=== PATIENT | female | born 1975 | race African-American/Black ===

== ENCOUNTER 2016-08-10 20:37 | Emergency (ER) | payer MEDICAID ==
[~2016-08-10] VITALS: Ht 172.7 cm; Wt 133.8 kg
[~2016-08-10 20:37] MED LIST: HUMULOG; lantus; lisinopril; neurontin
[2016-08-10 21:00] VITALS: BP 159/96
[2016-08-10 21:42] LABS: Basophils # (auto) 0 uL; Basophils % (auto) 0.4 % (0.0-2.0); Eosinophils # (auto) 0.2 uL; Hemoglobin 12.3 g/dL (12.2-16.2); Lymphocytes # (auto) 2.6 uL; Lymphocytes % (auto) 27.1 % (10.0-50.0); Mean Corpuscular Hemoglobin 27.2 pg (28.0-32.0); Mean Corpuscular Hgb Conc. 33.3 g/dL (32.0-36.0); Mean Corpuscular Volume 81.6 fL (80.0-100.0); Mean Platelet Volume 8.9 fL (7.4-10.4); Monocytes # (auto) 0.5 uL; Monocytes % (auto) 4.7 % (0.0-12.0); Neutrophils # (auto) 6.4 uL; Neutrophils % (auto) 65.8 % (37.0-80.0); Platelet Count (auto) 330 10^3/uL (140-450); Red Cell Distribution Width 14.7 % (11.6-16.0); White Blood Cell 9.7 10^3/uL (4.4-10.8)
[2016-08-10 22:02] LABS: Albumin 3.3 g/dL (3.4-5.0); Anion Gap 7 (5-15); Aspartate Aminotransferase 12 U/L (15-37); BUN/Creatinine Ratio 10.8; Blood Urea Nitrogen 8 mg/dL (7-18); Calcium 8.4 mg/dL (8.5-10.1); Carbon Dioxide 27 mmol/L (21-32); Chloride 104 mmol/L (98-107); GFR African American 112 mL/min; GFR Non-African American 93 mL/min; Glucose 238 mg/dL (74-106); Potassium 3.7 mmol/L (3.5-5.1); Sodium 138 mmol/L (136-145)
[2016-08-10 22:06] LABS: Partial Thromboplastin Time 24.9 sec (22.64-33.71); Prothrombin Time 10.3 sec (9.37-12.3)
[2016-08-10 22:07] LABS: Alkaline Phosphatase 160 U/L (45-117); Bilirubin, Total 0.3 mg/dL (0.2-1.0); Total Protein 7.9 g/dL (6.4-8.2)
== END 2016-08-11 01:48 | disposition left against medical advice (07) ==
LOC: ER 20:55
DX: R07.9 Chest pain, unspecified (principal); R68.84 Jaw pain; Z53.21 Procedure and treatment not carried out due to patient leaving prior to being seen by health care provider
CPT/HCPCS: 36415; 80053; 81025; 84484; 85025; 85610; 85730; 93005

== ENCOUNTER 2017-05-14 02:53 | Emergency (ER) | payer MEDICAID ==
[~2017-05-14] VITALS: Ht 170.2 cm; Wt 141.5 kg
[2017-05-14 05:25] LABS: Basophils # (auto) 0 uL; Eosinophils # (auto) 0.1 uL; Mean Corpuscular Volume 79.6 fL (80.0-100.0); Monocytes # (auto) 0.4 uL; Red Cell Distribution Width 16.1 % (11.8-14.3)
[2017-05-14 05:27] LABS: Basophils % (auto) 0.7 % (0.0-2.0); Hematocrit 35.6 % (36.0-46.0); Hemoglobin 11.6 g/dL (12.2-16.2); Lymphocytes # (auto) 1.1 uL; Lymphocytes % (auto) 17.5 % (10.0-50.0); Mean Corpuscular Hemoglobin 25.9 pg (28.0-32.0); Mean Corpuscular Hgb Conc. 32.5 g/dL (32.0-36.0); Neutrophils # (auto) 4.6 uL; Neutrophils % (auto) 72.8 % (37.0-80.0); Nucleated Red Blood Cells % 0.2 %; Platelet Count (auto) 260 10^3/uL (140-450); Red Blood Cells 4.47 10^6/uL (4.0-5.20); White Blood Cell 6.3 10^3/uL (4.4-10.8)
[2017-05-14 05:28] LABS: Urine Bacteria FEW /hpf (None Seen); Urine Blood Negative /uL (Negative); Urine Specific Gravity 1.033 (1.001-1.035); Urine WBC <1 /hpf (0 - 5)
[2017-05-14 05:43] LABS: Albumin 2.7 g/dL (3.4-5.0); BUN/Creatinine Ratio 8.3; Bilirubin, Total 0.2 mg/dL (0.2-1.0); Calcium 8.1 mg/dL (8.5-10.1); Magnesium 1.8 mg/dL (1.6-2.6); Potassium 3.9 mmol/L (3.5-5.1); Total Protein 7.2 g/dL (6.4-8.2)
[2017-05-14] MEDS ORDERED: SODIUM CHLORIDE 0.9% 1,000 ML IV ONE (07:11)
[2017-05-14] MEDS ORDERED: METOCLOPRAMIDE HCL 5MG/ml INJ 2ml VIAL IV ONE (07:15)
[2017-05-14] MEDS ORDERED: KETOROLAC TROMETH 30 MG/ML 1ML VIAL IV ONE (07:15)
[2017-05-14] MEDS ORDERED: FUROSEMIDE 40 MG/4 ML VIAL IV ONE (07:15)
[2017-05-14 07:44] LABS: INR 0.95 (0.9-1.15); Partial Thromboplastin Time 27.3 sec (22.64-33.71); Prothrombin Time 10.4 sec (9.37-12.3)
[2017-05-14 12:56] VITALS: BP 127/83
== END 2017-05-14 13:11 | disposition home or self-care (01) ==
LOC: ER 02:53 → EDBD 02:53 → EDUNIT# 02:53 → ER 13:11
DX: R07.89 Other chest pain (principal); E11.65 Type 2 diabetes mellitus with hyperglycemia; E44.0 Moderate protein-calorie malnutrition; E66.01 Morbid (severe) obesity due to excess calories; J40 Bronchitis, not specified as acute or chronic; I10 Essential (primary) hypertension; F17.210 Nicotine dependence, cigarettes, uncomplicated; Z68.42 Body mass index [BMI] 45.0-49.9, adult; Z79.4 Long term (current) use of insulin; Z83.3 Family history of diabetes mellitus; Z82.49 Family history of ischemic heart disease and other diseases of the circulatory system
CPT/HCPCS: 36415; 71020; 80053; 81001; 81025; 82962; 83735; 83880; 84443; 84484; 85025; 85379; 85610; 85730; 87400; 93005; 96361; 96374; 96375; 99285; J1885; J1940; J2765; J7030

== ENCOUNTER 2021-04-17 21:25 | Emergency (ER) | payer MEDICAID ==
[~2021-04-17] VITALS: Ht 172.7 cm; Wt 113.4 kg
[~2021-04-17 21:25] MED LIST changes: +AMIT-256; +CEFT1INJ33 IJ; +CETI10TA93; +FAMO-12; +FLUC100T34 PO; -HUMULOG; +HYDR-4072 PO; +INSREGI SC; +LEVEMIR; +LISI40TA11; +VANC500I IV; -lantus; -lisinopril; -neurontin
[2021-04-17 21:48] VITALS: BP 164/98
== END 2021-04-17 22:15 | disposition short-term general hospital (02) ==
LOC: ER 21:25 → EDBD 21:25 → ER 22:15
DX: S06.899A Other specified intracranial injury with loss of consciousness of unspecified duration, initial encounter (principal); E11.9 Type 2 diabetes mellitus without complications; K21.9 Gastro-esophageal reflux disease without esophagitis; I10 Essential (primary) hypertension; F17.210 Nicotine dependence, cigarettes, uncomplicated; Z88.0 Allergy status to penicillin; Z88.5 Allergy status to narcotic agent; V43.52XA Car driver injured in collision with other type car in traffic accident, initial encounter; Y93.89 Activity, other specified; Y92.488 Other paved roadways as the place of occurrence of the external cause; Y99.8 Other external cause status

== ENCOUNTER 2021-10-14 05:34 | Inpatient (IN) | payer MEDICAID ==
[~2021-10-14] VITALS: Ht 170.2 cm; Wt 143.0 kg
[2021-10-14 07:09] LABS: Basophils # (auto) 0.1 10 ^3/uL (0-0.2); Basophils % (auto) 1.1 % (0.0-2.0); Eosinophils # (auto) 0.3 10 ^3/uL (0-0.8); Hematocrit 26.9 % (36.0-46.0); Lymphocytes # (auto) 1.8 10 ^3/uL (0.4-5.4); Lymphocytes % (auto) 22.4 % (10.0-50.0); Mean Corpuscular Hemoglobin 27.3 pg (28.0-32.0); Mean Corpuscular Hgb Conc. 33.4 g/dL (32.0-36.0); Mean Corpuscular Volume 81.7 fL (80.0-100.0); Monocytes # (auto) 0.5 10 ^3/uL (0-1.3); Monocytes % (auto) 6.1 % (0.0-12.0); Neutrophils # (auto) 5.4 10 ^3/uL (1.6-8.6); Neutrophils % (auto) 66.4 % (37.0-80.0); Nucleated Red Blood Cells % 0.1 %; Red Blood Cells 3.29 10^6/uL (4.0-5.20); Red Cell Distribution Width 14.9 % (11.8-14.3); White Blood Cell 8.1 10^3/uL (4.4-10.8)
[2021-10-14 07:30] LABS: Albumin 1.5 g/dL (3.4-5.0); Calcium 8.2 mg/dL (8.5-10.1); Potassium 4.1 mmol/L (3.5-5.1)
[2021-10-14 07:33] LABS: BUN/Creatinine Ratio 18.5; Bilirubin, Total 0.2 mg/dL (0.2-1.0); Total Protein 6.4 g/dL (6.4-8.2)
[2021-10-14] MEDS ORDERED: SODIUM CHLORIDE 0.9% 1,000 ML IV ONE (08:45)
[2021-10-14] MEDS ORDERED: ASPirin 81 mg TAB ONE (11:44)
[2021-10-14] MEDS ORDERED: ASPirin 81 mg TAB PO ONE (12:00)
[2021-10-14] MEDS ORDERED: HYDROcodone-ACET 5/325MG TAB PO ONE (15:00)
[2021-10-14] MEDS ORDERED: ACETAMINOPHEN 325 MG TAB PO PRN (16:30)
[2021-10-14] MEDS ORDERED: ONDANSETRON HCL 4 MG/2 ML VIAL IV PRN (16:30)
[2021-10-14] MEDS ORDERED: MORPHINE SULFATE INJ 2 MG/ml SYRG IV PRN ×2 (16:30)
[2021-10-14] MEDS ORDERED: NITROGLYCERIN 0.4 MG SL TAB SL PRN (16:30)
[2021-10-14] MEDS: DOXYCYCLINE 100MG/250ML 250 ML IV SCH (18:43)
[2021-10-14] MEDS: HYDROcodone-ACET 5/325MG TAB PO PRN (19:28)
[2021-10-15] MEDS: HYDROcodone-ACET 5/325MG TAB PO PRN ×3 (01:38→15:12)
[2021-10-15] MEDS: DOXYCYCLINE 100MG/250ML 250 ML IV SCH ×2 (06:23→17:46)
[2021-10-15] MEDS: ENOXAPARIN SOD 40 MG/0.4 ML SYRINGE SC SCH (10:08)
[2021-10-15 13:00] LABS: Basophils # (auto) 0 10 ^3/uL (0-0.2); Basophils % (auto) 0.6 % (0.0-2.0); Eosinophils # (auto) 0.5 10 ^3/uL (0-0.8); Hemoglobin 9.4 g/dL (12.2-16.2); Mean Corpuscular Hemoglobin 26.8 pg (28.0-32.0); Monocytes # (auto) 0.4 10 ^3/uL (0-1.3); Neutrophils # (auto) 3.6 10 ^3/uL (1.6-8.6)
[2021-10-15 13:02] LABS: Hematocrit 28.6 % (36.0-46.0); Lymphocytes # (auto) 2.1 10 ^3/uL (0.4-5.4); Lymphocytes % (auto) 31.4 % (10.0-50.0); Mean Corpuscular Hgb Conc. 32.8 g/dL (32.0-36.0); Mean Corpuscular Volume 81.7 fL (80.0-100.0); Monocytes % (auto) 6.6 % (0.0-12.0); Neutrophils % (auto) 53.4 % (37.0-80.0); Nucleated Red Blood Cells % 0.2 %; White Blood Cell 6.7 10^3/uL (4.4-10.8)
[2021-10-15 13:20] LABS: Albumin 1.5 g/dL (3.4-5.0); Calcium 8.4 mg/dL (8.5-10.1); Potassium 4.4 mmol/L (3.5-5.1)
[2021-10-15 13:24] LABS: Bilirubin, Total 0.3 mg/dL (0.2-1.0); Total Protein 6.5 g/dL (6.4-8.2)
[2021-10-15 17:25] VITALS: BP 162/88
[2021-10-15] MEDS ORDERED: [UNRECOGNIZED DRUG - CODE] (18:54)
[2021-10-15] MEDS ORDERED: PAR20T GT (18:54)
[2021-10-15] MEDS ORDERED: SEVE800T8 PO (18:55)
[2021-10-15] MEDS ORDERED: ALLO100T PO (18:58)
[2021-10-15] MEDS ORDERED: GABA300C10 PO (19:00)
[2021-10-15] MEDS ORDERED: MONT10TA23 PO (19:01)
[2021-10-15] MEDS: HYDROmorphone HCL 2 MG/ML VL/or syr IV PRN (21:13)
[2021-10-15 22:16] VITALS: BP 150/91
[2021-10-16] VITALS (7 sets, daily range): BP systolic 150–167; BP diastolic 75–96
[2021-10-16] MEDS: HYDROcodone-ACET 5/325MG TAB PO PRN ×2 (00:16→20:50)
[2021-10-16] MEDS: HYDROmorphone HCL 2 MG/ML VL/or syr IV PRN ×3 (01:57→14:41)
[2021-10-16] MEDS: DOXYCYCLINE 100MG/250ML 250 ML IV SCH ×2 (05:00→17:06)
[2021-10-16 06:46] LABS: Basophils # (auto) 0 10 ^3/uL (0-0.2); Basophils % (auto) 0.5 % (0.0-2.0); Eosinophils # (auto) 0.5 10 ^3/uL (0-0.8); Eosinophils % (auto) 7.6 % (0.0-7.0); Hemoglobin 9.6 g/dL (12.2-16.2); Lymphocytes # (auto) 2.7 10 ^3/uL (0.4-5.4); Lymphocytes % (auto) 39.5 % (10.0-50.0); Mean Corpuscular Hemoglobin 27.2 pg (28.0-32.0); Mean Corpuscular Hgb Conc. 33.1 g/dL (32.0-36.0); Mean Corpuscular Volume 82.2 fL (80.0-100.0); Monocytes # (auto) 0.5 10 ^3/uL (0-1.3); Neutrophils # (auto) 3.1 10 ^3/uL (1.6-8.6); Neutrophils % (auto) 45.4 % (37.0-80.0); Nucleated Red Blood Cells % 0.1 %; Red Blood Cells 3.53 10^6/uL (4.0-5.20); Red Cell Distribution Width 14.8 % (11.8-14.3); White Blood Cell 6.8 10^3/uL (4.4-10.8)
[2021-10-16 06:54] LABS: BUN/Creatinine Ratio 22.6; Calcium 8.3 mg/dL (8.5-10.1); Magnesium 2.2 mg/dL (1.6-2.6); Potassium 4.6 mmol/L (3.5-5.1)
[2021-10-16] MEDS: LISINOPRIL 20 MG TAB PO SCH (10:52)
[2021-10-16] MEDS: ENOXAPARIN SOD 40 MG/0.4 ML SYRINGE SC SCH (10:52)
[2021-10-16] MEDS: hydrALAZINE HCL 20 MG/ML VL IV PRN (11:52)
[2021-10-16] MEDS ORDERED: DOXY-286 PO (15:37)
[2021-10-17] MEDS: HYDROcodone-ACET 5/325MG TAB PO PRN ×3 (03:09→17:42)
[2021-10-17 05:00] VITALS: BP 121/86
[2021-10-17 05:11] VITALS: BP 182/78
[2021-10-17] MEDS: DOXYCYCLINE 100MG/250ML 250 ML IV SCH ×2 (05:16→17:00)
[2021-10-17] MEDS: hydrALAZINE HCL 20 MG/ML VL IV PRN ×2 (05:19→17:42)
[2021-10-17 06:35] VITALS: BP 158/75
[2021-10-17 09:09] VITALS: BP 152/71
[2021-10-17] MEDS: LISINOPRIL 20 MG TAB PO SCH (09:12)
[2021-10-17] MEDS: ENOXAPARIN SOD 40 MG/0.4 ML SYRINGE SC SCH (09:15)
[2021-10-17 13:29] VITALS: BP 148/77
[2021-10-17 17:25] VITALS: BP 168/78
== END 2021-10-17 20:30 | disposition home health service (06) | DRG 139 ==
LOC: EDBD 05:34 → EDUNIT# 05:34 → ER 05:34 → TELE 16:18 → TELE-WESTW 10-15 17:15
PROVIDERS: ADMIT Internal Medicine; ATTEND Internal Medicine
DX: J18.9 Pneumonia, unspecified organism (principal); D63.8 Anemia in other chronic diseases classified elsewhere; E11.621 Type 2 diabetes mellitus with foot ulcer; I24.8 Other forms of acute ischemic heart disease; E03.9 Hypothyroidism, unspecified; E11.65 Type 2 diabetes mellitus with hyperglycemia; E66.01 Morbid (severe) obesity due to excess calories; I10 Essential (primary) hypertension; Z20.822 Contact with and (suspected) exposure to COVID-19; L08.9 Local infection of the skin and subcutaneous tissue, unspecified; F17.210 Nicotine dependence, cigarettes, uncomplicated; S92.402A Displaced unspecified fracture of left great toe, initial encounter for closed fracture; W18.39XA Other fall on same level, initial encounter; L97.509 Non-pressure chronic ulcer of other part of unspecified foot with unspecified severity; Z88.5 Allergy status to narcotic agent; Z88.0 Allergy status to penicillin; Z68.42 Body mass index [BMI] 45.0-49.9, adult; Z81.8 Family history of other mental and behavioral disorders; Z82.49 Family history of ischemic heart disease and other diseases of the circulatory system; Y93.89 Activity, other specified; Y92.89 Other specified places as the place of occurrence of the external cause; Y99.8 Other external cause status; Z79.84 Long term (current) use of oral hypoglycemic drugs
CPT/HCPCS: 36415; 71046; 73630; 80048; 80053; 83735; 83880; 84443; 84484; 85025; 93005; 93306; 96360; 96372; G0378; J2405; J3490